=== PATIENT | female | born 1985 | race Caucasian/White ===

== ENCOUNTER 2016-08-05 16:55 | Emergency (ER) | payer MEDICAID, OTHER ==
[~2016-08-05] VITALS: Ht 149.9 cm; Wt 50.0 kg
[~2016-08-05 16:55] MED LIST: IBUP600T26 PO
[2016-08-05 16:59] VITALS: BP 126/66; PULSE 86; RESP 16; TEMP 97.9; O2SAT 98
[2016-08-05] MEDS ORDERED: SODIUM CHLORIDE 0.9% FLUSH 5 ML FLUSH IVF PRN (18:00)
[2016-08-05 18:12] VITALS: O2SAT 99
[2016-08-05 18:54] LABS: BASOPHIL % 0.4 % (0.0-2.0); EOSINOPHIL # 0.1 TH/MM3 (0-0.4); EOSINOPHIL % 1.6 % (0.0-4.0); HEMATOCRIT 34.8 % (35.0-46.0); HEMO FLAGS DIFF FINAL; LYMPH % 25.4 % (9.0-44.0); MEAN CELL VOLUME 86.7 FL (80.0-100.0); MEAN CORPUSCULAR HGB CONC 34.6 % (32.0-36.0); MONO % 8.2 % (0.0-8.0); NEUT % 64.4 % (16.0-70.0); PLATELET COUNT 212 TH/MM3 (150-450); RED BLOOD COUNT 4.01 MIL/MM3 (4.00-5.30); RED CELL DISTRIBUTION WIDTH 12.5 % (11.6-17.2); WHITE BLOOD COUNT 7.8 TH/MM3 (4.0-11.0)
[2016-08-05] MEDS ORDERED: SODIUM CHLOR 0.9% 1000 ML INJ 1,000 ML IV ONE (19:15)
[2016-08-05 19:17] LABS: BICARBONATE 25.7 MEQ/L (21.0-32.0); POTASSIUM 3.8 MEQ/L (3.5-5.1)
[2016-08-05 20:27] LABS: BACTERIA, URINE FEW /hpf; BLOOD, URINE NEG (NEG); COMMENT (UR) CULT NOT INDICATED; CULTURE IF INDICATED CULT NOT INDICATED; GLUCOSE,URINE NEG (NEG); KETONE, URINE NEG (NEG); NITRITE,URINE NEG (NEG); PH, URINE 6.5 (5.0-8.5); SQUAMOUS EPITHELIAL CELL URINE 6 /hpf (0-5); URINE COLOR YELLOW (YELLW/STRAW)
[2016-08-05] MEDS ORDERED: ZOFR4TAB3 SL (20:29)
--- NOTE | 2016-08-05 20:29 | PD ---
HPI Chief Complaint: Related Problem Time Seen by Provider: 17:47 Travel History International Travel<30 days: No Contact w/Intl Traveler<30days: No Traveled to known affect area: No History of Present Illness HPI Patient is a at approximately 7 weeks gestational age presents to emergency department with her boyfriend for evaluation of suprapubic pain and cramping as well as nausea and vomiting. Patient states she is by home test and does not know exactly how far along she has. She states that cramping is been waxing and waning and currently she feels well but wants to make sure her baby is okay She read that ectopic is a possibility. Denies any fever vaginal bleeding vaginal discharge diarrhea. She started nonbloody and non-bilious vomiting. [facility] Past Medical History Medical History: Denies Significant Hx Diminished Hearing: No Tetanus Vaccination: Unknown ?: LMP: 06/19/16 : 3 Para: 2 Past Surgical History Section: Yes Tonsillectomy: Yes Social History Alcohol Use: Yes (SOCIALLY) Tobacco Use: No Substance Use: No Allergies-Medications (Allergen,Severity, Reaction): Coded Allergies: Bactrim (Verified Allergy, Intermediate, DIZZINESS, HIVES, 08/05/16) Reported Meds & Prescriptions Reported Meds & Active Scripts Active Macrobid (Nitrofurantoin Monoh/Nitrofur Macro) 100 Mg Cap 100 Mg PO BID 7 Days Zofran Odt (Ondansetron Odt) 4 Mg Tab 4 Mg SL Q8HR PRN Review of Systems Except as stated in HPI: all other systems reviewed are Neg Physical Exam Narrative GENERAL: Well-developed well-nourished no apparent distress SKIN: Warm and dry. HEAD: Atraumatic. Normocephalic. EYES: Pupils equal and round. No scleral icterus. No injection or drainage. ENT: No nasal bleeding or discharge. Mucous membranes pink and moist. NECK: Trachea midline. No JVD. CARDIOVASCULAR: Regular rate and rhythm. No murmur appreciated. RESPIRATORY: No accessory muscle use. Clear to auscultation. Breath sounds equal bilaterally. GASTROINTESTINAL: Abdomen soft, non-tender, nondistended. Hepatic and splenic margins not palpable. MUSCULOSKELETAL: No obvious deformities. No clubbing. No cyanosis. No edema. NEUROLOGICAL: Awake and alert. No obvious cranial nerve deficits. Motor grossly within normal limits. Normal speech. PSYCHIATRIC: Appropriate mood and affect; insight and judgment normal. Data Data Last Documented VS Vital Signs Date Time Temp Pulse Resp B/P Pulse Ox O2 Delivery O2 Flow Rate FiO2 08/05/16 21:29 61 18 96/51 98 Room Air 08/05/16 16:59 97.9 Orders Basic Metabolic Panel (Bmp) (08/05/16 17:48) Beta Hcg (Quant/Titer) (08/05/16 17:48) Complete Blood Count With Diff (08/05/16 17:48) Urinalysis - C+S If Indicated (08/05/16 17:48) Iv Access Insert/Monitor (08/05/16 17:48) Ecg Monitoring (08/05/16 17:48) Oximetry (08/05/16 17:48) Sodium Chloride 0.9% Flush (Ns Flush) (08/05/16 18:00) Ed Poc Ultrasound (08/05/16 18:58) Sodium Chlor 0.9% 1000 Ml Inj (Ns 1000 M (08/05/16 19:15) Labs Laboratory Tests Test 08/05/16 08/05/16 18:02 19:35 White Blood Count 7.8 TH/MM3 Red Blood Count 4.01 MIL/MM3 Hemoglobin 12.0 GM/DL Hematocrit 34.8 % Mean Corpuscular Volume 86.7 FL Mean Corpuscular Hemoglobin 30.0 PG Mean Corpuscular Hemoglobin 34.6 % Concent Red Cell Distribution Width 12.5 % Platelet Count 212 TH/MM3 Mean Platelet Volume 8.2 FL Neutrophils (%) (Auto) 64.4 % Lymphocytes (%) (Auto) 25.4 % Monocytes (%) (Auto) 8.2 % Eosinophils (%) (Auto) 1.6 % Basophils (%) (Auto) 0.4 % Neutrophils # (Auto) 5.0 TH/MM3 Lymphocytes # (Auto) 2.0 TH/MM3 Monocytes # (Auto) 0.6 TH/MM3 Eosinophils # (Auto) 0.1 TH/MM3 Basophils # (Auto) 0.0 TH/MM3 CBC Comment DIFF FINAL Differential Comment Sodium Level 137 MEQ/L Potassium Level 3.8 MEQ/L Chloride Level 104 MEQ/L Carbon Dioxide Level 25.7 MEQ/L Anion Gap 7 MEQ/L Blood Urea Nitrogen 10 MG/DL Creatinine 0.60 MG/DL Estimat Glomerular Filtration 117 ML/MIN Rate Random Glucose 76 MG/DL Calcium Level 8.5 MG/DL Human Chorionic Gonadotropin, 92982 MIU/ML Quant Urine Color YELLOW Urine Turbidity HAZY Urine pH 6.5 Urine Specific [place] 1.012 Urine Protein NEG mg/dL Urine Glucose (UA) NEG mg/dL Urine Ketones NEG mg/dL Urine Occult Blood NEG Urine Nitrite NEG Urine Bilirubin NEG Urine Urobilinogen LESS THAN 2.0 MG/DL Urine Leukocyte Esterase TRACE Urine WBC 6 /hpf Urine Squamous Epithelial 6 /hpf Cells Urine Bacteria FEW /hpf Microscopic Urinalysis Comment CULT NOT INDICATED MDM Medical Decision Making Medical Screen Exam Complete: Yes Emergency Medical Condition: Yes Differential Diagnosis UTI, , ectopic , hyperemesis. Narrative Course Patient was roomed in emergency department, her abdominal exam is completely benign. Bedside ultrasound was reassuring. Discussed Zofran risk benefits competitions alternative including the risk of defects. Discussed with her minimal efficacious dose to be used at home. Push by mouth fluids. Also discussed using Benadryl as a possible alternative to Zofran at home. Patient still would like a prescription for Zofran and I will oblige. Discussed need follow-up with a [employer]. Otherwise she stable for discharge. Patient was recommended for a pelvic exam emergency department and she declined. Discussed first trimester care vitamins. Procedures Procedure Narrative Bedside ultrasound transabdominal for OB: Single intrauterine seen approximately 7 weeks 0 days by crown-rump length. heart tones to 140 by M-mode. No gross abnormalites. Diagnosis Primary Impression: Nausea/vomiting in Additional Impression: Asymptomatic bacteriuria Med/Other Pt SpecificInfo: Prescription(s) given Scripts Nitrofurantoin Monohydrate Macrocrystals (Macrobid)100 Mg Hhs720 Mg PO BID 7 Days Ref 0 Prov:Gulshan Wood MD 08/05/16 Ondansetron Odt (Zofran Odt)4 Mg Tab4 Mg SL Q8HR PRN (Nausea/Vomiting) #10 TAB Ref 0 Prov:Gulshan Wood MD 08/05/16 Disposition: DISCHARGE HOME Condition: Stable Gulshan Wood MD Aug 05, 2016 20:29
[2016-08-05] MEDS ORDERED: MACR100C2 PO (20:38)
[2016-08-05 21:29] VITALS: BP 96/51; PULSE 61; RESP 18; O2SAT 98
[2016-10-18] MEDS ORDERED: PREN1MIS11 PO (10:44)
== END 2016-08-05 21:37 | disposition home or self-care (01) ==
LOC: NEPA 16:55
DX: O21.9 Vomiting of pregnancy, unspecified (principal); O26.891 Other specified pregnancy related conditions, first trimester; R82.71 Bacteriuria; Z3A.01 Less than 8 weeks gestation of pregnancy
CPT/HCPCS: 80048; 81001; 84702; 85025; 96360; 99284; J7030

== ENCOUNTER 2017-03-04 18:09 | Emergency (ER) | payer OTHER ==
[~2017-03-04] VITALS: Ht 149.9 cm; Wt 72.6 kg
[~2017-03-04 18:09] MED LIST changes: -IBUP600T26 PO; +PREN1MIS11 PO
[2017-03-04] MEDS ORDERED: LACTATED RINGER'S 1000 ML INJ 1,000 ML IV SCH (18:49)
--- NOTE | 2017-03-04 18:57 | PD ---
HPI Chief Complaint Lower abdominal pain Date Seen: Mar 04, 2017 Travel History International Travel<30 Days: No Contact w/Intl Traveler<30Days: No Known Affected Area: No History of Present Illness HPI Patient is a 31-year-old white female G3 for P2 previous 2 who is scheduled for on the of this month is now 36 weeks and 6 days, she presents complaining of abdominal pain sporadically through the day. She is not sure if his contractions or not. Denies bleeding or leakage of fluid. Heart rate tracing is reactive and she is sohan about every 3-5 minutes Weeks Gestation: 36 Para: 2 : 4 History Obstetric History Obstetric History 2 C-sections ,1 early AB Past Surgical History Narrative Surgical 2 C-sections Social History Alcohol Use: No Tobacco Use: No Substance Abuse: No Allergies-Medications (Allergen,Severity, Reaction): Coded Allergies: sulfamethoxazole (Unverified Allergy, Intermediate, DIZZINESS, HIVES, 02/27) trimethoprim (Unverified Allergy, Intermediate, DIZZINESS, HIVES, 02/27/17) Home Meds Active Scripts W/O Vit A W/ Fe Carbo Pack (Citranatal 90 Dha Pack) 90-1 & 300 Mg Pack , 1 EA PO DAILY for Nutritional Supplement, #60 BLISTER 11 Refills 30 day supply. Prov:Carie Cantu 10/18/16 Review of Systems General / Constitutional: No: Fever, Weight Gain, Chills, Other Eyes: No: Diploplia, Blurred Vision, Visual changes, Pain, Photophobia HENT: No: Headaches, Vertigo, Lightheadedness Cardiovascular: No: Irregular Rhythm, Chest Pain or Discomfort, Palpitations, Tachycardia, Syncope, Varicosities, Edema, Cyanosis Respiratory: No: Cough, Short of Breath, Other Gastrointestinal: Abdominal Pain, No: Nausea, Vomiting, Diarrhea Genitourinary: No: Decreased Urinary Output, Oliguria Musculoskeletal: No: Limited ROM, Weakness, Cramping, Edema, Pain Skin: No Rash, No Itching, No Dryness, No Lumps, No Change in Pigmentation, No Change in Nails, No Alopecia, No Lesions Neurologic: No: Weakness, Dizziness, Syncope, Focal Abnormalities, Coordination Problem, Headache, Slurred Speech, Seizures Psychiatric: No: Depression, Suicidal Ideations, Homicidal Ideation Endocrine: No: Heat Intolerance, Cold Intolerance, Polydipsia, Polyuria, Other Physical Exam Narrative GENERAL: Well-nourished, well-developed patient. SKIN: Warm and dry. HEAD: Normocephalic and atraumatic. EYES: No scleral icterus. No injection or drainage. ENT: No nasal drainage noted. Mucous membranes pink. Airway patent. NECK: Supple, trachea midline. No JVD. CARDIOVASCULAR: Regular rate and rhythm without murmurs, gallops, or rubs. RESPIRATORY: Breath sounds equal bilaterally. No accessory muscle use. BREASTS: Bilateral exam showed no masses , no retractions, no nipple discharge. ABDOMEN/GI: Abdomen soft, non-tender, bowel sounds present, no rebound, no guarding Gravid to [-36] weeks size Fundal Height: [-36] GENITOURINARY: External Genitalia: intact and normal in appearance BUS glands: [-] Cervix: [Posterior-] Dilatation: [1-] Effacement: [50-] Station: [-3] Presentation: [-vtx] Membranes: [intact ] Uterine Contractions: 3-5 minutes-] FHT's: Category: [1-] Baseline: [-133] Reactive: [yes-] Variability: [mod-] Decels: [none-] EXTREMITIES: No cyanosis or edema. BACK: Nontender without obvious deformity. No CVA tenderness. NEUROLOGICAL: Awake and alert. Motor and sensory grossly within normal limits. Five out of 5 muscle strength in all muscle groups. Normal speech. Data Data Orders Orders Vital Signs (Adult) .ON ADMISSION (03/04/17 18:49) ^ Labor Status (03/04/17 18:49) Cbc No Diff, Includes Plts (03/04/17 18:49) Type And Screen (03/04/17 18:49) Lactated Ringer's 1000 Ml Inj (Lr 1000 M (03/04/17 18:49) Urinalysis - C+S If Indicated (03/04/17 18:49) Fentanyl Inj (Fentanyl Inj) (03/04/17 19:00) MDM Interpretation(s) Patient is 31-year-old white female previous 2.36 weeks 6 days who is scheduled for on the this month but is now presenting with contractions. heart rate tracing is reactive. Contractions noted to be every 3-5 minutes. Cervix is 1/50 and -3. Plan Plan to IV hydrate and the give pain medication through IV, and at that point hopefully contractions will space out. Patient not quite term and so will not' s repeat her at this point unless her cervix changes or SROM, she may need to be observed overnight to of further treat and evaluate Diagnosis Diagnosis: Primary Impression: Uterine contractions during Additional Impression: Previous delivery, antepartum Disposition: 01 DISCHARGE HOME Condition: Stable Balwinder Tobias II, MD Mar 04, 2017 18:57
[2017-03-04 19:30] LABS: BLOOD, URINE NEG (NEG); COMMENT (UR) CULT NOT INDICATED; CULTURE IF INDICATED CULT NOT INDICATED; GLUCOSE,URINE NEG (NEG); KETONE, URINE NEG (NEG); MUCUS URINE FEW /lpf (OCC); NITRITE,URINE NEG (NEG); SQUAMOUS EPITHELIAL CELL URINE 3 /hpf (0-5); URINE COLOR LIGHT-YELLOW (YELLW/STRAW)
[2017-03-04 19:42] LABS: HEMATOCRIT 33.4 % (35.0-46.0); MEAN CORPUSCULAR HEMOGLOBIN 29.3 PG (27.0-34.0); MEAN CORPUSCULAR HGB CONC 34.8 % (32.0-36.0); PLATELET COUNT 193 TH/MM3 (150-450); RED BLOOD COUNT 3.97 MIL/MM3 (4.00-5.30); RED CELL DISTRIBUTION WIDTH 16.1 % (11.6-17.2); REVIEW FLAG FINAL; WHITE BLOOD COUNT 7.3 TH/MM3 (4.0-11.0)
== END 2017-03-04 20:36 | disposition home or self-care (01) ==
LOC: HOBED 18:09
DX: O47.03 False labor before 37 completed weeks of gestation, third trimester (principal); O34.219 Maternal care for unspecified type scar from previous cesarean delivery; Z3A.36 36 weeks gestation of pregnancy
CPT/HCPCS: 59025; 81001; 85027; 86850; 86900; 86901; 96361; 96374; 99284; J3010; J7120

== ENCOUNTER 2017-03-20 08:42 | Inpatient (IN) | payer OTHER ==
[~2017-03-20] VITALS: Ht 149.9 cm; Wt 75.0 kg
[2017-03-20] VITALS (28 sets, daily range): BP systolic 106–126; BP diastolic 53–78; PULSE 71–109; RESP 14–20; TEMP 97.5–98; O2SAT 99–100
[2017-03-20] MEDS ORDERED: LACTATED RINGER'S 1000 ML INJ 1,000 ML IV ONE (08:58)
[2017-03-20] MEDS: LACTATED RINGER'S 1000 ML INJ 1,000 ML IV SCH ×2 (09:09→14:38)
[2017-03-20 09:10] LABS: AUTOMATED NEUTROPHIL # 5.1 TH/MM3 (1.8-7.7); BASOPHIL % 0.2 % (0.0-2.0); BLOOD, URINE NEG (NEG); EOSINOPHIL # 0.3 TH/MM3 (0-0.4); EOSINOPHIL % 3.6 % (0.0-4.0); GLUCOSE,URINE NEG (NEG); HEMATOCRIT 36.1 % (35.0-46.0); HEMO FLAGS DIFF FINAL; KETONE, URINE NEG (NEG); MEAN CORPUSCULAR HEMOGLOBIN 28.5 PG (27.0-34.0); MEAN CORPUSCULAR HGB CONC 33.9 % (32.0-36.0); MUCUS URINE FEW /lpf (OCC); NEUT % 62.2 % (16.0-70.0); NITRITE,URINE NEG (NEG); PH, URINE 6.5 (5.0-8.5); PLATELET COUNT 205 TH/MM3 (150-450); RED CELL DISTRIBUTION WIDTH 16.4 % (11.6-17.2); SQUAMOUS EPITHELIAL CELL URINE 1 /hpf (0-5); URINE COLOR YELLOW (YELLW/STRAW); WHITE BLOOD COUNT 8.3 TH/MM3 (4.0-11.0)
[2017-03-20 09:12] LABS: COMMENT (UR) CULT NOT INDICATED; CULTURE IF INDICATED CULT NOT INDICATED
--- NOTE | 2017-03-20 09:41 | HHI.HP ---
HPI Chief Complaint scheduled c/s Date Seen: Mar 20, 2017 Time Seen: 09:20 Travel History International Travel<30 Days: No Contact w/Intl Traveler<30Days: No Known Affected Area: No History of Present Illness HPI 31yo here for scheduled c/s (repeat c/s). Pt denies LOF, vaginal bleeding. Endorses movement and stated she has irregular contractions. No other complaints. Of note: pt stated she will not have tubal ligation procedure done and plans to use another method of control. Weeks Gestation: 39 Para: 2 : 3 History Past Medical History Narrative Medical viral meningitis Obstetric History Obstetric History at 39 wks. Pt has had 2 prior c/s. first c/s done due to bradycardia. No other complications with prior pregnancies Past Surgical History Narrative Surgical -tonsillectomy- young age -c/s x2 Family History Family History: Negative Social History Alcohol Use: No Tobacco Use: No Substance Abuse: No Allergies-Medications (Allergen,Severity, Reaction): Coded Allergies: sulfamethoxazole (Unverified Allergy, Intermediate, DIZZINESS, HIVES, 02/27) trimethoprim (Unverified Allergy, Intermediate, DIZZINESS, HIVES, 02/27/17) Home Meds Active Scripts W/O Vit A W/ Fe Carbo Pack (Citranatal 90 Dha Pack) 90-1 & 300 Mg Pack , 1 EA PO DAILY for Nutritional Supplement, #60 BLISTER 11 Refills 30 day supply. Prov:Carie Cantu 10/18/16 Review of Systems Except as stated in HPI: all other systems reviewed are Neg Physical Exam Vital Signs Date Time Temp Pulse Resp B/P (MAP) Pulse Ox O2 Delivery O2 Flow Rate FiO2 03/20/17 09:10 83 03/20/17 09:05 82 03/20/17 09:00 20 Narrative GENERAL: Well-nourished, well-developed patient. SKIN: Warm and dry. HEAD: Normocephalic and atraumatic. EYES: No scleral icterus. No injection or drainage. ENT: No nasal drainage noted. Mucous membranes pink. Airway patent. NECK: Supple, trachea midline. No JVD. CARDIOVASCULAR: Regular rate and rhythm without murmurs, gallops, or rubs. RESPIRATORY: Breath sounds equal bilaterally. No accessory muscle use. BREASTS: Bilateral exam showed no masses , no retractions, no nipple discharge. ABDOMEN/GI: Abdomen soft, non-tender, bowel sounds present, no rebound, no guarding Gravid to 39/1 weeks size GENITOURINARY: Membranes: intact Uterine Contractions: irregular, every 4 mins FHT's: Category: 1 Baseline: 130 Reactive: positive Variability: moderate Decels: none EXTREMITIES: No cyanosis or edema. BACK: Nontender without obvious deformity. No CVA tenderness. NEUROLOGICAL: Awake and alert. Motor and sensory grossly within normal limits. Five out of 5 muscle strength in all muscle groups. Normal speech. Caprini VTE Risk Assessment Caprini VTE Risk Assessment: Mod/High Risk (score >= 2) Caprini Risk Assessment Model Point Value = 1 Point Value = 2 Point Value = 3 Point Value = 5 Age 41-60 Minor surgery BMI > 25 kg/m2 Swollen legs Varicose veins or History of unexplained or recurrent spontaneous Oral contraceptives or hormone replacement Sepsis (< 1 month) Serious lung disease, including pneumonia (< 1 month) Abnormal pulmonary function Acute myocardial infarction Congestive heart failure (< 1 month) History of inflammatory bowel disease Medical patient at bed rest Age 61-74 Arthroscopic surgery Major open surgery (> 45 min) Laparoscopic surgery (> 45 min) Malignancy Confined to bed (> 72 hours) Immobilizing plaster cast Central venous access Age >= 75 History of VTE Family history of VTE Factor V Leiden Prothrombin [id number] Lupus anticoagulant Anticardiolipin antibodies Elevated serum homocysteine Heparin-induced thrombocytopenia Other congenital or acquired thrombophilia Stroke (< 1 month) Elective arthroplasty Hip, pelvis, or leg fracture Acute spinal cord injury (< 1 month) Prophylaxis Regimen Total Risk Factor Score Risk Level Prophylaxis Regimen 0-1 Low Early ambulation 2 Moderate Order ONE of the following: *Sequential Compression Device (SCD) *Heparin 5000 units SQ BID 3-4 Higher Order ONE of the following medications: *Heparin 5000 units SQ TID *Enoxaparin/Lovenox 40 mg SQ daily (WT < 150 kg, CrCl > 30 mL/min) *Enoxaparin/Lovenox 30 mg SQ daily (WT < 150 kg, CrCl > 10-29 mL/min) *Enoxaparin/Lovenox 30 mg SQ BID (WT < 150 kg, CrCl > 30 mL/min) AND/OR *Sequential Compression Device (SCD) 5 or more Highest Order ONE of the following medications: *Heparin 5000 units SQ TID (Preferred with Epidurals) *Enoxaparin/Lovenox 40 mg SQ daily (WT < 150 kg, CrCl > 30 mL/min) *Enoxaparin/Lovenox 30 mg SQ daily (WT < 150 kg, CrCl > 10-29 mL/min) *Enoxaparin/Lovenox 30 mg SQ BID (WT < 150 kg, CrCl > 30 mL/min) AND *Sequential Compression Device (SCD) Data Data Vital Signs Reviewed: Yes Orders Orders Admit To Inpatient (03/20/17 ) Code Status (03/20/17 08:58) Vital Signs (Adult) .ON ADMISSION (03/20/17 08:58) Activity Oob Ad Tatianna (03/20/17 08:58) Heart (03/20/17 08:58) Urinary Catheter Management LUIS MIGUEL.Q8H (03/20/17 08:58) ^ Preps (03/20/17 08:58) Scd / Ric / Foot Pump LUIS MIGUEL.QSHIFT (03/20/17 08:58) ^ Ultrasound For Locatio (03/20/17 08:58) Diet Npo (03/20/17 Breakfast) Lactated Ringer's 1000 Ml Inj (Lr 1000 M (03/20/17 08:58) Lactated Ringer's 1000 Ml Inj (Lr 1000 M (03/20/17 09:28) Cefazolin 2 Gm Premix (Ancef 2 Gm Premix (03/20/17 10:00) Citric Acid-Sodium Citrate Liq (Bicitra (03/20/17 10:30) Type And Screen (03/20/17 08:58) Complete Blood Count With Diff (03/20/17 08:58) Urinalysis - C+S If Indicated (03/20/17 08:58) Inpatient Certification (03/20/17 ) Specimen To Be Collected PRN (03/20/17 08:58) Labs Laboratory Tests Test 03/20/17 08:55 White Blood Count 8.3 Red Blood Count 4.30 Hemoglobin 12.2 Hematocrit 36.1 Mean Corpuscular Volume 84.0 Mean Corpuscular Hemoglobin 28.5 Mean Corpuscular Hemoglobin Concent 33.9 Red Cell Distribution Width 16.4 Platelet Count 205 Mean Platelet Volume 8.2 Neutrophils (%) (Auto) 62.2 Lymphocytes (%) (Auto) 24.0 Monocytes (%) (Auto) 10.0 Eosinophils (%) (Auto) 3.6 Basophils (%) (Auto) 0.2 Neutrophils # (Auto) 5.1 Lymphocytes # (Auto) 2.0 Monocytes # (Auto) 0.8 Eosinophils # (Auto) 0.3 Basophils # (Auto) 0.0 CBC Comment DIFF FINAL Differential Comment Urine Color YELLOW Urine Turbidity CLEAR Urine pH 6.5 Urine Specific [place] 1.011 Urine Protein NEG Urine Glucose (UA) NEG Urine Ketones NEG Urine Occult Blood NEG Urine Nitrite NEG Urine Bilirubin NEG Urine Urobilinogen LESS THAN 2.0 Urine Leukocyte Esterase NEG Urine RBC LESS THAN 1 Urine WBC LESS THAN 1 Urine Squamous Epithelial Cells 1 Urine Mucus FEW Microscopic Urinalysis Comment CULT NOT INDICATED Assessment/Plan Problem List: (1) Previous section ICD Codes: Z98.891 - History of uterine scar from previous surgery Status: Acute Assessment and Plan 31 yo at 39/1 here for scheduled repeat c/s. 1. IUP at 39/1 - continue routine OB care - FHT category 1 2. scheduled c/s - pt NPO since midnight -will received 2 grams of ancef pre-op sdw Carissa Ellington MD R1 Mar 20, 2017 09:41
[2017-03-20] MEDS ORDERED: ceFAZolin 2 GM PREMIX 50 ML IV SCH (10:00)
[2017-03-20] MEDS ORDERED: CITRIC ACID-SODIUM CITRATE LIQ 30 ML UDC PO SCH (10:30)
[2017-03-20] MEDS ORDERED: MORPHINE SULFATE PF 5 MG/10 ML VIAL ONE (10:33)
[2017-03-20] MEDS ORDERED: OXYTOCIN 10 UNIT/ML AMP ONE (10:33)
[2017-03-20] MEDS ORDERED: ONDANSETRON HCL 4 MG/2 ML VIAL ONE (10:33)
[2017-03-20] MEDS ORDERED: SODIUM CHLORIDE 0.9% FLUSH 10 ML FLUSH IV FLUSH PRN (12:00)
[2017-03-20] MEDS ORDERED: ONDANSETRON HCL 4 MG/2 ML VIAL IV PUSH PRN (12:00)
[2017-03-20] MEDS ORDERED: OXYTOCIN 30 UNITS-500ML PREMIX 500 ML IV ONE (12:00)
[2017-03-20] MEDS ORDERED: ACETAMINOPHEN 1000 MG/100 ML 100 ML IV ONE (12:12)
--- NOTE | 2017-03-20 12:12 | PD.OB.DELI ---
Procedure Note Section Procedure Pre Op Diagnosis: (1) 39 weeks gestation of (2) Previous delivery affecting , antepartum Post Op Diagnosis: Performed by Ceci Harmon Procedure: Repeat Low Transverse Sec Indication for delivery: Desired elective repeat Previous condition: None Informed consent obtained: For anesthesia, For procedure Confirmed correct: Time-out taken Anesthesia: Spinal Medication prior to procedure: As documented in eMAR Monitoring during procedure: Blood pressure monitoring, classroom monitor, Pulse oximetry Urinary catheter: Inserted using sterile technique, To dependent drainage Sterile preparation: Duraprep Position: Supine with wedge to left side Operative Features Skin Incision: Pfannenstiel Uterine Incision: Low transverse w/knife / blunt ext Membranes Ruptured: Artificially, Amount of liquid (copious), Appearance of fluid (clear) Presentation: Occiput anterior Delivery date: Mar 20, 2017 Delivery time: 11:13 Delivery of infant: Other (kiwi vacuum placed due to high presentation) Infant: Male One Minute : 8 Five Minute : 9 Weight: 4310gm Status of infant: Viable Placenta delivered: Intact Medications: Oxytocin Estimated blood loss: 1000 Procedure tolerated: Well Maternal Condition: Stable Condition: Stable Ceci Harmon MD Mar 20, 2017 11:52
[2017-03-20] MEDS ORDERED: OXYTOCIN 30 UNITS-500ML PREMIX 500 ML ONE (12:36)
[2017-03-20] MEDS ORDERED: MORPHINE SULFATE EPIDURAL ONE (13:45)
[2017-03-20] MEDS ORDERED: EPIDURAL-DIPHENHYDRAMINE HCL 50 MG CAP PO PRN (13:45)
[2017-03-20] MEDS ORDERED: MORPHINE SULFATE PF 5 MG/10 ML VIAL EPIDURAL ONE (13:45)
[2017-03-20] MEDS ORDERED: EPIDURAL-NO SYSTEMIC NARCOTICS PRN (13:45)
[2017-03-20] MEDS ORDERED: EPIDURAL-NALOXONE HCL 0.4 MG/ML AMP IV PUSH PRN (13:45)
[2017-03-20] MEDS ORDERED: EPIDURAL-DO NOT ADMINISTER ANTICOAGULANTS PRN (13:45)
[2017-03-20] MEDS ORDERED: EPIDURAL-DIPHENHYDRAMINE HCL 50 MG/ML VIAL IV PUSH PRN (13:45)
[2017-03-20] MEDS ORDERED: PROMETHAZINE INJ 25 MG/ML VIAL IM ONE (16:00)
[2017-03-20] MEDS ORDERED: LACTATED RINGER'S 1000 ML INJ 1,000 ML IV SCH (16:55)
[2017-03-20] MEDS: IBUPROFEN 600 MG TAB PO PRN (17:57)
[2017-03-20] MEDS ORDERED: SODIUM CHLORIDE 0.9% FLUSH 10 ML FLUSH IV FLUSH SCH (21:00)
[2017-03-20] MEDS ORDERED: OXYTOCIN 30 UNITS-500ML PREMIX 500 ML IV PRN (22:00)
[2017-03-20] MEDS: SIMETHICONE 80 MG CHEWABLE TAB PO PRN (22:30)
[2017-03-20] MEDS: oxyCODONE/ACETAMINOPHEN 5 MG/325 MG TAB PO PRN (22:30)
[2017-03-21] VITALS: BP 133/76; PULSE 102; RESP 20; TEMP 97.9
[2017-03-21] MEDS: IBUPROFEN 600 MG TAB PO PRN ×4 (03:47→21:16)
[2017-03-21] MEDS: oxyCODONE/ACETAMINOPHEN 5 MG/325 MG TAB PO PRN ×5 (03:48→21:16)
[2017-03-21 05:55] LABS: AUTOMATED NEUTROPHIL # 6.7 TH/MM3 (1.8-7.7); BASOPHIL % 0.1 % (0.0-2.0); EOSINOPHIL # 0.1 TH/MM3 (0-0.4); EOSINOPHIL % 1.5 % (0.0-4.0); HEMATOCRIT 32.2 % (35.0-46.0); HEMO FLAGS DIFF FINAL; LYMPH % 16.5 % (9.0-44.0); LYMPHOCYTE # 1.5 TH/MM3 (1.0-4.8); MEAN CELL VOLUME 84.9 FL (80.0-100.0); MEAN CORPUSCULAR HEMOGLOBIN 28.2 PG (27.0-34.0); MEAN CORPUSCULAR HGB CONC 33.2 % (32.0-36.0); MONO % 6.6 % (0.0-8.0); NEUT % 75.3 % (16.0-70.0); PLATELET COUNT 199 TH/MM3 (150-450); RED BLOOD COUNT 3.79 MIL/MM3 (4.00-5.30); RED CELL DISTRIBUTION WIDTH 15.8 % (11.6-17.2); WHITE BLOOD COUNT 8.9 TH/MM3 (4.0-11.0)
--- NOTE | 2017-03-21 07:23 | HHI.OB ---
Subjective Post Operative Day: 1 Remarks Pt seen and examined this morning. Postoperative day # 1 AFVSS overnight. Incision nondraining Decreased lochia. Denies dysuria. No breast tenderness. She is feeding the baby via breast and and bottle. Appetite good. No nausea or vomiting. Patient has not yet had a bowel movement or passed bowel gas. Ambulating well. Denies calf pain or shortness of breath. Otherwise, she is doing well this morning and has no other concerns. Objective Vitals/I&O Vital Signs Date Time Temp Pulse Resp B/P (MAP) Pulse Ox O2 Delivery O2 Flow Rate FiO2 03/21/17 00:00 97.9 102 20 133/76 (95) 03/20/17 19:00 97.6 83 16 112/73 (86) 03/20/17 15:00 98.0 76 14 126/78 (94) 03/20/17 13:07 111/60 (77) 03/20/17 13:00 97.5 03/20/17 12:46 18 03/20/17 12:46 113/57 (75) 03/20/17 12:46 91 20 99 03/20/17 12:30 117/65 (82) 03/20/17 12:30 97 03/20/17 12:30 18 100 03/20/17 12:22 100 03/20/17 12:21 109 109/60 (76) 03/20/17 12:21 18 03/20/17 12:08 97 117/53 (74) 03/20/17 12:07 100 03/20/17 12:07 20 03/20/17 11:54 18 100 03/20/17 11:53 108 03/20/17 11:53 107/57 (74) 03/20/17 11:47 97.5 03/20/17 10:15 71 03/20/17 10:05 89 03/20/17 10:00 84 03/20/17 09:55 90 18 09:50 89 1817 09:45 89 1817 09:40 90 18 09:35 78 18 09:30 83 03/20/17 09:30 77 106/62 (77) 03/20/17 09:25 77 03/20/17 09:20 80 03/20/17 09:15 84 115/65 (82) 03/20/17 09:15 88 03/20/17 09:10 83 03/20/17 09:05 82 03/20/17 09:00 20 Result Diagram: 03/21/17 0509 Objective Remarks GENERAL: Well-nourished, well-developed patient. CARDIOVASCULAR: Regular rate and rhythm without murmurs, gallops, or rubs. RESPIRATORY: Breath sounds equal bilaterally. No accessory muscle use. ABDOMEN/GI: Abdomen soft, non-tender, bowel sounds present. Incision: Clean, dry and intact. Fundus: Firm, non-tender at umbilicus. GENITOURINARY: Light to moderate bleeding. EXTREMITIES: No cyanosis or edema, non-tender, without signs of DVT. Medications and IVs Current Medications Medications (Trade) Dose Ordered Sig/Faheem Route Start Time Stop Time Status Last Admin Lactated Ringer's 1,000 ml @ 150 mls/hr Q6H40M IV 03/20/17 09:28 03/20/17 14:38 Cefazolin Sodium/ Dextrose 50 ml @ 100 mls/hr FORM MAKER PLASTER IV 03/20/17 10:00 03/24/17 09:59 03/20/17 10:18 (Bicitra Liq) 30 ml FORM MAKER PLASTER PO 03/20/17 10:30 03/24/17 10:29 03/20/17 10:18 Lactated Ringer's 1,000 ml @ 100 mls/hr Q10H IV 03/20/17 16:55 03/21/17 12:54 Oxytocin 500 ml @ 100 mls/hr UNSCH X1 PRN IV 03/20/17 22:00 03/21/17 21:59 (NS Flush) 2 ml BID IV FLUSH 03/20/17 21:00 (NS Flush) 2 ml UNSCH PRN IV FLUSH 03/20/17 12:00 (Mylicon Chew) 80 mg QID PRN PO 03/20/17 12:00 03/20/17 22:30 (Motrin) 600 mg Q6H PRN PO 03/20/17 12:00 03/21/17 03:47 (Percocet 5-325 Mg) 1 tab Q4H PRN PO 03/20/17 12:00 03/21/17 04:47 (Percocet 5-325 Mg) 2 tab Q4H PRN PO 03/20/17 12:00 (Audelia-Colace) 2 tab Q12H PRN PO 03/20/17 12:00 (M-M-R Ii Inj) 0.5 ml ONCE ONCE SQ 03/21/17 16:00 03/21/17 16:01 (Boostrix Inj) 0.5 ml ONCE ONCE IM 03/21/17 16:00 03/21/17 16:01 (Zofran Inj) 4 mg Q6H PRN IV PUSH 03/20/17 12:00 03/20/17 14:38 Miscellaneous Information NO SYSTEMIC NARCOTICS TO BE GIVEN FO... UNSCH PRN .XX 03/20/17 13:45 03/21/17 13:44 (Narcan Inj) 0.4 mg UNSCH PRN IV PUSH 03/20/17 13:45 03/21/17 13:44 (Benadryl Inj) 25 mg Q6H PRN IV PUSH 03/20/17 13:45 03/21/17 13:44 03/20/17 17:57 (Benadryl) 50 mg Q6H PRN PO 03/20/17 13:45 03/21/17 13:44 Miscellaneous Information ALL NURSING DEPARTMENTS UNSCH PRN .XX 03/20/17 13:45 03/21/17 13:44 Assessment/Plan Problem List: (1) Previous section ICD Codes: Z98.891 - History of uterine scar from previous surgery Status: Acute Assessment and Plan 31 y/o female who is postop day # 1 s/p . -Continue routine care. -Percocet and Motrin PRN pain. -Post Op H/H: 10.7/32 -Encouraged OOB. Advised pelvic rest for 6 wks. Wll need follow-up appointment in 1-2 weeks for incision check. -Re: ctrl, she would like discussed her options at her follow-up appointment. -Anticipate discharge in 1-2 days pending clinical course. myrtle Harmon MD Discharge Planning 1-2 days pending clinical course Sim Morrison MD R2 Mar 21, 2017 07:23
[2017-03-21] MEDS ORDERED: diphenhydrAMINE HCL 25 MG CAP PO PRN (08:15)
[2017-03-21] MEDS: DOCUSATE SODIUM 50 MG/SENNA 8.6 MG TAB PO PRN ×2 (09:39→21:15)
[2017-03-21] MEDS ORDERED: DIPHTH/TETANUS/ACEL PERTUSSIS (BOOSTER) 0.5 ML VIAL/PFS IM ONE (16:00)
[2017-03-21] MEDS ORDERED: MEASLES, MUMPS, RUBELLA VACCINE 0.5 ML VIAL SQ ONE (16:00)
[2017-03-21] MEDS: SIMETHICONE 80 MG CHEWABLE TAB PO PRN (16:59)
--- NOTE | 2017-03-21 22:03 | MP ---
cc: DARNELL PERRIN MD DATE OF SURGERY 03/21/17 PREOPERATIVE DIAGNOSIS 1. 39 weeks gestation. 2. Previous two sections, desires repeat. POSTOPERATIVE DIAGNOSIS 1. 39 weeks gestation. 2. Previous two sections, desires repeat. PROCEDURE Repeat low transverse section without extension ESTIMATED BLOOD LOSS 1000 mL. MEDICATIONS Ancef 2 grams given preoperatively. COMPLICATIONS No complications DRAINS Beasley to gravity. COUNTS Correct x3 FINDINGS 1. Normal uterus, tubes and ovaries. 2. Clear copious amniotic fluid. 3. Dense adhesions in the vesicouterine peritoneum encompassing the lower uterine segment to the anterior fascial component. 4. Infant male vertex position. Apgars were eight and nine. Weight was 9 pounds 8 ounces which is 4310 grams, male. DISPOSITION The patient taken back to recovery room in good condition. DESCRIPTION OF PROCEDURE The patient taken to the operating room, prepped and draped usual sterile fashion placed in dorsal supine position with a wedge to her left side after adequate anesthetic was obtained. Her previous scar was removed and taken down to the fascia. The fascia was nicked in the midline, extended bilaterally and extended superiorly inferiorly taking care to avoid traumatizatoin to bowel and bladder. The vesicouterine peritoneum here was dense with adhesions that were was taken down carefully trying to avoid traumatization to the bladder. The adhesions encompassed the lower uterine segment, the bladder and the anterior fascia. Entry was made high in the fascia and extended inferiorly and the bladder was dissected off the lower segment. Transverse hysterotomy incision was made bluntly extended bilaterally. The was high with copious amounts of amniotic fluid and a Kiwi vacuum was placed for approximately 20 seconds for delivery of the head. The rest of the body was delivered and resuscitation team was there. 45-second cord clamping delayed before the placenta was delivered and the was handed off to the resuscitation team. Endometrium cavity was curetted with a moist laparotomy sponge. The hysterotomy incision repaired with running locking #1chromic with good hemostasis at closure. Gutters were free of all blood and clot material. The patient had copious amounts of oozing from the dissected areas which were made hemostatic with the Bovie and tied off using a 2-0 chromic. The abdominal musculature was plicated together in the midline using a 2-0 chromic suture. Fascia was closed with a #1 PDS. Subcuticular tissue was scarred down and this was released with the Bovie. Bleeders were taken care of using the Bovie and a subcuticular suture of 4-0 Monocryl was placed on the skin. The patient tolerated procedure well. Pressure dressing will be placed due to the oozing in the subcutaneous tissue and then she will be taken back to recovery room. MD VICTOR HUGO Castelan/ /11:53 AM /9:48 PM MTDDanita
[2017-03-22] MEDS: IBUPROFEN 600 MG TAB PO PRN ×3 (02:47→14:33)
[2017-03-22] MEDS: oxyCODONE/ACETAMINOPHEN 5 MG/325 MG TAB PO PRN ×3 (02:48→14:33)
--- NOTE | 2017-03-22 07:42 | HHI.OB ---
Subjective Post Operative Day: 2 Remarks Pt seen and examined this morning. Postoperative day # 2 AFVSS overnight. Incision nondraining Decreased lochia. Denies dysuria. No breast tenderness. She is feeding the baby via breast and and bottle. Appetite good. No nausea or vomiting. Patient has not yet had a bowel movement or passed bowel gas. Ambulating well. Denies calf pain or shortness of breath. Otherwise, she is doing well this morning and has no other concerns. Objective Result Diagram: 03/21/17 0500 Objective Remarks GENERAL: Well-nourished, well-developed patient. CARDIOVASCULAR: Regular rate and rhythm without murmurs, gallops, or rubs. RESPIRATORY: Breath sounds equal bilaterally. No accessory muscle use. ABDOMEN/GI: Abdomen soft, non-tender, bowel sounds present. Incision: Clean, dry and intact with mild erythema of the surgical incision. Fundus: Firm, non-tender at umbilicus. GENITOURINARY: Light to moderate bleeding. EXTREMITIES: No cyanosis or edema, non-tender, without signs of DVT. Medications and IVs Current Medications Medications (Trade) Dose Ordered Sig/Faheem Route Start Time Stop Time Status Last Admin Lactated Ringer's 1,000 ml @ 150 mls/hr Q6H40M IV 03/20/17 09:28 03/20/17 14:38 Cefazolin Sodium/ Dextrose 50 ml @ 100 mls/hr SUBSTATION INSPECTOR IV 03/20/17 10:00 03/24/17 09:59 03/20/17 10:18 (Bicitra Liq) 30 ml SUBSTATION INSPECTOR PO 03/20/17 10:30 03/24/17 10:29 03/20/17 10:18 (NS Flush) 2 ml BID IV FLUSH 03/20/17 21:00 (NS Flush) 2 ml UNSCH PRN IV FLUSH 03/20/17 12:00 (Mylicon Chew) 80 mg QID PRN PO 03/20/17 12:00 03/21/17 16:59 (Motrin) 600 mg Q6H PRN PO 03/20/17 12:00 03/22/17 02:47 (Percocet 5-325 Mg) 1 tab Q4H PRN PO 03/20/17 12:00 03/21/17 04:47 (Percocet 5-325 Mg) 2 tab Q4H PRN PO 03/20/17 12:00 03/22/17 02:48 (Audelia-Colace) 2 tab Q12H PRN PO 03/20/17 12:00 03/21/17 21:15 (Zofran Inj) 4 mg Q6H PRN IV PUSH 03/20/17 12:00 03/20/17 14:38 (Benadryl) 25 mg Q4H PRN PO 03/21/17 08:15 Assessment/Plan Problem List: (1) Previous section ICD Codes: Z98.891 - History of uterine scar from previous surgery Status: Acute (2) delivery delivered ICD Codes: O82 - Encounter for delivery without indication Assessment and Plan 31 y/o female who is postop day # 2 s/p . 1. Section -Continue routine care. -Percocet and Motrin PRN pain. -Post Op H/H: 10.7/32 -Encouraged OOB. Advised pelvic rest for 6 wks. Will need follow-up appointment in 1-2 weeks for incision check. -Re: ctrl, she would like discussed her options at her follow-up appointment. -Patient found to have erythema around surgical wound, Clindamycin 450mg Q6H started -Anticipate discharge in today with prescription for Clindamycin 450mg Q6H for five days. myrtle Maloney MD Discharge Planning Today with prescription for Clindamycin 450mg Q6H for five days Sim Morrison MD R2 Mar 22, 2017 07:42
[2017-03-22] MEDS ORDERED: OXYC1TAB63 PO (10:42)
[2017-03-22] MEDS ORDERED: CLIN1CAP5 PO (10:42)
[2017-03-22] MEDS ORDERED: IBUP-232 PO (10:42)
[2017-03-22] MEDS ORDERED: SENN1TAB PO (10:43)
--- NOTE | 2017-03-22 10:43 | HHI.DCPOC ---
Discharge Care Plan Diagnosis: (1) delivery delivered Report Symptoms to Your Doctor -Temperature above 100.5 degrees -Redness, of incision or excessive or foul smelling drainage -Unusual pain or calf pain -Increased vaginal bleeding -Painful or difficulty urinating -Feelings of extreme sadness or anxiety after 2 weeks Goals to Promote Your Health * To prevent worsening of your condition and complications * To maintain your health at the optimal level Directions to Meet Your Goals Take your medications as prescribed Follow your dietary instruction Follow activity as directed Ensure plenty of rest for recovery Drink fluids for hydration Keep your appointments as scheduled Take your immunizations and boosters as scheduled If your symptoms worsen call your PCP, if no PCP go to Urgent Care Center or Emergency Room Smoking is Dangerous to Your Health. Avoid second hand smoke Call the 24-hour crisis hotline for domestic abuse at Sim Morrison MD R2 Mar 22, 2017 10:43
[2017-03-22] MEDS: CLINDAMYCIN 150 MG CAP PO SCH ×2 (10:47→17:18)
[2017-03-22] MEDS: DOCUSATE SODIUM 50 MG/SENNA 8.6 MG TAB PO PRN (14:33)
== END 2017-03-22 18:07 | disposition home or self-care (01) | DRG 766 ==
LOC: H2EB 08:42 → H1EA 13:24
PROVIDERS: ADMIT Obstetrics & Gynecology Obstetrics; ATTEND Obstetrics & Gynecology Obstetrics
PROC: 10D00Z1 Extraction of Products of Conception, Low, Open Approach (ICD-10-PCS; principal; 2017-03-20)
DX: O34.211 Maternal care for low transverse scar from previous cesarean delivery (principal); Z37.0 Single live birth; Z3A.39 39 weeks gestation of pregnancy
CPT/HCPCS: 59025; 81001; 85025; 86850; 86900; 86901; 90715; J0131; J0690; J1200; J2274; J2405; J2550; J2590; J7120